=== PATIENT | female | born 1945 | race Caucasian/White ===

== ENCOUNTER 2020-03-23 16:33 | Inpatient (IN) | payer MEDICARE, OTHER, SELFPAY ==
[2020-03-23 17:17] VITALS: BP 145/66; PULSE 104; RESP 16; TEMP 36.8; O2SAT 95; BMI 20.3
[2020-03-23] MEDS: 0.9% Saline Lock 10 ML Syringe IV (21:47)
[2020-03-23] MEDS: Senna/Docusate Sodium 1 Tablet GT (21:56)
--- NOTE | 2020-03-23 22:29 | HP.PCM_ITS ---
Problem List (1) Debility Status: Acute (2) Spontaneous bacterial peritonitis Status: Acute (3) Infectious encephalopathy Status: Acute (4) Stroke Status: Chronic (5) Hypokalemia Status: Acute (6) Hypomagnesemia Status: Acute (7) Aspiration pneumonia Status: Acute (8) Seizure disorder Status: Chronic (9) Diffuse large B cell lymphoma Status: Chronic (10) GERD (gastroesophageal reflux disease) Status: Chronic (11) Hypothyroidism Status: Chronic (12) Depression Status: Chronic (13) Anorexia Status: Chronic (14) Hyperlipidemia Status: Chronic (15) Expressive aphasia Status: Acute History of Present Illness Date of Admission: 03/23/20 Chief Complaint: Here for rehabilitation, strengthening, transition to palliative or hospice care. 02/18/2020 - 03/09/2020 [facility] admission for urinary tract infection, bacteremia, subacute stroke, PEG tube place, potassium 2.2, Magnesium 1.5. 03/14/2020 The patient is a 74 year old Female with below past medical history admitted to [facility] with change in mental status. She is a resident at [facility]. Patient had diffuse abdominal tenderness. CT abdomen/pelvis showed moderate ascites, pneumoperitoneum, fecal impaction, anasarca. 03/16/2020 Paracentesis for spontaneous bacterial peritonitis. Removed 3.7 Liters of fluid growing gram negative bacilli. Zosyn IV started for peritonitis. Ascites fluid grew Pseudomonas, on Zosyn IV. 03/20/2020 PEG tube feeding started. 03/21/2020 Hypoxia, Tachycardia. Gurgling consistent with aspiration. Tube feed stopped. 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 Patient able to eat regular diet. 10 more days of IV Zosyn to finish treatment of bacterial peritonitis. COVID-19 negative x 2. 03/23/2020 Admit to TCU with debility, here for rehabilitation, strengthening, intravenous antibiotics, prior to [facility]. Past Medical History Past Medical History (Chronic Problems): Chronic Problems Stroke (Chronic) Seizure disorder (Chronic) Diffuse large B cell lymphoma (Chronic) GERD (gastroesophageal reflux disease) (Chronic) Hypothyroidism (Chronic) Depression (Chronic) Anorexia (Chronic) Hyperlipidemia (Chronic) Allergies iodine Allergy (Verified 03/23/20 18:54) PT UNSURE OF REACTION NSAIDS (Non-Steroidal Anti-Inflamma Allergy (Verified 03/23/20 18:54) PT UNSURE OF REACTION Home Medications: Ambulatory Orders Medication Instructions Recorded Acyclovir [Zovirax] 400 mg GT BID 03/23/20 Bisacodyl 10 mg WI DAILY PRN 03/23/20 Haloperidol Lactate 0.5 - 1 ml SL Q4H PRN PRN 03/23/20 Hyoscyamine Sulfate 1 - 2 tab SL Q2H PRN PRN 03/23/20 Lorazepam [Ativan] 0.5 - 1 mg SL Q4H PRN PRN 03/23/20 Ondansetron [Ondansetron Odt] 4 mg PO Q6H PRN PRN 03/23/20 Pantoprazole Sodium [Protonix] 40 mg GT DAILY 03/23/20 Piperacillin Sodium/Tazobactam 3.375 gm IV [id number] 03/23/20 [Piperacil-Tazo 3.375 gm Add Vl] Polyethylene Glycol 3350 [Miralax] 17 gm GT DAILY 03/23/20 Prednisone 5 mg PO DAILY 03/23/20 levETIRAcetam oral solution 500 mg PO BID 03/23/20 [Keppra Solution] morphine solution (IR) [Roxanol 5 - 10 mg PO Q1H PRN PRN 03/23/20 (IR oral solution)] Surgical History: - - PEG tube. 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 pertinent FACILITIES MAINTENANCE ASSISTANT history Lives: [facility] Smoking Status: Unknown if ever smoked Alcohol: None Drugs: None - *Family History Maternal History Items: No pertinent history Paternal History Items: No pertinent history Review of Systems Constitutional: Denies: Chills, Fever, Weight Change HEENT: Denies: Head Aches, Sinus Congestion, Sinus Drainage Cardiovascular: Denies: Chest Pain, Palpitations Respiratory: Denies: Cough, Shortness of breath at rest, Sputum production Gastrointestinal: Denies: Abdominal Pain, Nausea, Vomiting Genitourinary: Denies: Dysuria Musculoskeletal: Denies: Joint Pain, Joint Tenderness Skin: Denies: Rash, Wounds Neurological: Denies: Numbness, Tingling, Focal weakness Psychiatric: Denies: Anxiety, Depression, Homicidal Ideations, Suicidal Ideations Hematologic/ Lymphatic: Denies: Easy Bruising, Easy Bleeding VTE Information - Inpt Only VTE Present on Admission: No VTE Mechan Device Prophylaxis: Knee High CURTIS Hose VTE Pharm Prophylaxis ordered?: No Reason prophylaxis not ordered:: Treatment Not Indicated Patient Problems: Active and Suspected Problems Debility (Acute) Spontaneous bacterial peritonitis (Acute) Infectious encephalopathy (Acute) Hypokalemia (Acute) Hypomagnesemia (Acute) Aspiration pneumonia (Acute) Expressive aphasia (Acute) - Physical Exam Vitals/I&O's: Vital Signs Temp Pulse Resp BP Pulse Ox 98.2 F 104 H 16 145/66 H 95 03/23/20 17:17 03/23/20 17:17 03/23/20 17:17 03/23/20 17:17 03/23/20 17:17 Oxygen Delivery Method Room Air Weight: 53.694 kg Body Mass Index (BMI) 20.3 General: Alert, Oriented x3, Cooperative HEENT: Atraumatic, PERRLA, EOMI, Normocephalic Neck: Supple, No JVD, Negative Carotid Bruits Lungs: Clear to auscultation, Normal air movement Cardiovascular: Regular rate, No murmurs, - - Port right upper chest. Abdomen: Bowel Sounds Present, Soft, Non Tender, - - PEG tube present. Extremities: No edema, Capillary Refill Less than 3 Seconds Skin: No rashes, No breakdown Musculoskeletal: No Tenderness to Palpation of Joints or Extremities Neurological: Cranial nerves II-XII grossly intact Psych/Mental Status: Normal Affect, Appropriate Laboratory Results 03/23/20 21:05: COVID-19 (ALEKSANDR) Pending Current Medications Acyclovir (Zovirax) 400 mg GT BID ADELINE Bisacodyl (Dulcolax) 10 mg PO DAILY PRN PRN Reason: Constipation Bisacodyl (Dulcolax) 10 mg RECTAL DAILY PRN PRN Reason: Constipation Haloperidol Lactate (Haloperidol Lactate) 1 - 2 mg SL Q4H PRN PRN PRN Reason: AGITATION Heparin Sodium (Beef Lung) () 50 units IV UD PRN PRN Reason: Port-a-Cath (VAD)Heparin Flush Hyoscyamine Sulfate (Levsin/Sl) 0.125 - 0.25 mg SUBLINGUAL Q2H PRN PRN PRN Reason: secretions Piperacillin Sod/Tazobactam (Sod 3.375 gm/ Sodium Chloride) 50 mls @ 100 mls/hr IV Q6 ADELINE Stop: 04/02/20 12:29 Last Admin: 03/23/20 21:48 Dose: 100 mls/hr Documented by: Sodium Chloride () 250 mls @ 15 mls/hr IV .[id number] PRN PRN Reason: Saline Flush Last Admin: 03/23/20 21:56 Dose: 15 mls/hr Documented by: Sodium Chloride () 250 mls @ 15 mls/hr IV .[id number] PRN PRN Reason: Additional IVPB Infusion Lansoprazole (Lansoprazole) 30 mg GT DAILY ADELINE Levetiracetam (Keppra Oral Solution) 500 mg GT BID ADELINE Lorazepam (Ativan) 0.5 - 1 mg SL/PO Q4H PRN PRN PRN Reason: ANXIETY Morphine Sulfate (Roxanol (Ir Oral Solution)) 5 - 10 mg GT Q1H PRN PRN PRN Reason: Pain Score 1-10/10 Ondansetron HCl (Zofran Odt) 4 mg GT Q6H PRN PRN PRN Reason: NAUSEA Polyethylene Glycol (Miralax) 17 gm GT DAILY ON LICENSE OF [facility] Prednisone () 5 mg GT DAILY ON LICENSE OF [facility] Senna/Docusate Sodium (Senokot-S, Linette-Colace) 1 tablet GT BID ADELINE Last Admin: 03/23/20 21:56 Dose: 1 tablet Documented by: Sodium Chloride () 10 - 40 ml IV UD PRN PRN Reason: Port-a-Cath (VAD) Flush Last Admin: 03/23/20 21:47 Dose: 40 ml Documented by: Sodium Chloride (0.9% Nacl (Sterile) Posiflush) 10 - 40 ml IV UD PRN PRN Reason: Port access or dressing change Tuberculin PPD (Tubersol, Aplisol, Ppd) 5 tu ID X1 ONE Stop: 03/24/20 10:01 Tuberculin PPD (Tubersol, Aplisol, Ppd) 5 tu ID X1 ONE Stop: 03/31/20 10:01 Assessment/Plan All Active Problems Debility (Acute) Spontaneous bacterial peritonitis (Acute) Infectious encephalopathy (Acute) Hypokalemia (Acute) Hypomagnesemia (Acute) Aspiration pneumonia (Acute) Expressive aphasia (Acute) 74 year old female with below past medical history hospitalized for spontaneous bacterial peritonitis, complicated by aspiration pneumonia, admitted to TCU with debility, here for rehabilitation, strengthening, intravenous antibiotics, prior to transition to palliative care/hospice. * Debility - PT/OT. * Pain - Morphine 5-10MG Q1H PRN. * Bowel - Miralax 17GM daily, Senna/colace 1 tablet BID, Dulcolax 10MG daily PRN. * Adult immunization - Administer Prevnar 13, Pneumovax 23, Fluzone as appropriate. * DVT prophylaxis - Hold. * Antiviral prophylaxis - Acyclovir 400MG BID. * Agitation - Haldol 1-2MG SL Q4H PRN, GDR not recommended, resident is end of life. * Oral secretions - Levsin 0.125MG - 0.25MG SL Q2H PRN. * GERD - Lansoprazole 30MG daily. * Seizure disorder - Keppra 500MG BID. * Anxiety - Ativan 0.5MG - 1MG Q4H PRN. * Nausea - Zofran 4MG Q6H PRN. * Bacterial Peritonitis - Zosyn 3.375GM IV Q6H thru 04/02/2020. * Anorexia - Prednisone 5MG daily.
[2020-03-23 22:40] LABS: Probe Check PASS; Specimen Processing Control PASS
--- NOTE | 2020-03-23 23:07 | NURSING ---
Per Marco Antonio in pharm, d/t last dosage being late, hold midnight dose.
[2020-03-23 23:10] VITALS: BMI 20.3
[2020-03-24 04:50] VITALS: BP 145/69; PULSE 98; RESP 18; TEMP 36.8; O2SAT 98
[2020-03-24] MEDS: Lansoprazole 15 MG Capsule.DR 30 MG GT (04:54)
[2020-03-24] MEDS: predniSONE 5 MG Tablet GT (04:54)
[2020-03-24] MEDS: Senna/Docusate Sodium 1 Tablet GT ×2 (04:54→17:20)
[2020-03-24] MEDS: Acyclovir 200 MG Capsule 400 MG GT ×2 (04:54→17:20)
[2020-03-24] MEDS: Menthol/Lanolin/Calamine/Znox 113 GM Tube 1 APPLIC TOPICAL ×2 (04:55→20:18)
[2020-03-24] MEDS: Nystatin Powder 15gm Bottle 1 APPLIC TOPICAL ×2 (04:55→20:18)
[2020-03-24] MEDS: Polyethylene Glycol 3350 17 GM PACKET GT (04:55)
[2020-03-24] MEDS: levETIRAcetam Oral Solution 500 MG/5 ML GT ×2 (04:56→17:20)
[2020-03-24] MEDS: 0.9% Saline Lock 10 ML Syringe IV ×3 (05:04→17:22)
[2020-03-24 08:00] LABS: Absolute Lymphocyte Count 0.48 X10^3/uL (0.83-4.51); Absolute Neutrophil Count 4.7 X10^3/uL (2.0-7.7); Basophil# 0.01 X10^3/uL; Basophil% 0.2 % (0-1); Eosinophil# 0.07 X10^3/uL; Eosinophils% 1.3 % (0-5); Hematocrit 28.5 % (37-47); Hemoglobin 9.5 g/dL (12.0-15.0); Lymphocyte # 0.48 X10^3/ul (4.0); Lymphocyte % 8.8 % (19-41); Mean Corp Hgb Conc 33.3 g/dL (32-36); Mean Corpuscular Hgb 31.3 pg (27.0-32.0); Mean Corpuscular Volume 93.8 fL (81-99); Mean Platelet Vol. 10.7 fl (6.2-12.0); Monocyte# 0.18 X10^3/uL; Monocyte% 3.3 % (0-10); NRBC Flagged by Analyzer 0 % (0-5); Neutrophil # 4.68 X10^3/uL (2.7-7.7); POSITIVE COUNT YES; POSITIVE DIFFERENTIAL YES; POSITIVE MORPHOLOGY YES; RBC Distribution Width CV 20.5 % (11.6-14.6); RBC Distribution Width SD 61.8 fl (35.1-43.9); Red Blood Count 3.04 M/mm3 (4.2-5.4); White Blood Count 5.4 K/mm3 (4.4-11.0)
[2020-03-24 08:06] LABS: Differential Indicated SCAN CRITERIA MET
[2020-03-24 08:08] LABS: Platelet Count 39 K/mm3 (150-450)
[2020-03-24 08:42] LABS: Anion Gap 12 (5-15); BUN 5 mg/dL (7-18); BUN/Creat Ratio 32.5 RATIO (10-20); Calcium,Total 7.9 mg/dL (8.5-10.1); Chloride 104 mmol/L (98-107); Creatinine, Serum 0.15 mg/dL (0.55-1.02); Differential Comment SCANNED; EST Glomerular Filtration Rate 501 mL/min (>60); Est Glom Filt Rate - Afr Amer 606 mL/min (>60); Glucose 81 mg/dL (74-106); Potassium 2.4 mmol/L (3.5-5.1); Sodium Level 140 mmol/L (136-145)
[2020-03-24 08:43] LABS: Anisocytosis 2+; Hypochromasia 1+; Macrocytosis 1+; Microcytosis 1+; Platelet Estimate MKD DEC (ADEQ)
[2020-03-24 10:00] VITALS: PULSE 108; RESP 16; O2SAT 96
[2020-03-24] MEDS: Tuberculin,Purif.prot.deriv. 50 TU/ML Vial 5 ML ID (10:20)
--- NOTE | 2020-03-24 11:00 | NURSING ---
Oral care provided w/mouth swab and lip moisturizer. lips dry/flaking skin. pt incont small amt of stool, incont care provided. schwartz cath care done. pt repositioned to LT side, HOB elevated. Heel boots applied to bilat heels to prevent pressure. pt alert to self only, unable to answer too many questions. difficulty verbalizing to answer questions. denies pain. able to answer yes or no but slow to respond at times. call light in reach.
[2020-03-24] MEDS: morphine (oral solution) 10MG/0.5ML Syringe GT (13:33)
[2020-03-24 14:34] VITALS: BP 141/57; PULSE 76; RESP 14; TEMP 36.1; O2SAT 99
--- NOTE | 2020-03-24 18:08 | NURSING ---
Attempted to call family in chart, no answer, LM
[2020-03-25] MEDS: 0.9% Saline Lock 10 ML Syringe IV ×5 (00:18→23:56)
[2020-03-25] MEDS: Senna/Docusate Sodium 1 Tablet GT ×2 (04:59→17:59)
[2020-03-25] MEDS: Polyethylene Glycol 3350 17 GM PACKET GT (04:59)
[2020-03-25] MEDS: Acyclovir 200 MG Capsule 400 MG GT ×2 (04:59→17:59)
[2020-03-25] MEDS: Lansoprazole 15 MG Capsule.DR 30 MG GT (04:59)
[2020-03-25] MEDS: predniSONE 5 MG Tablet GT (04:59)
[2020-03-25] MEDS: levETIRAcetam Oral Solution 500 MG/5 ML GT ×2 (04:59→17:59)
[2020-03-25] MEDS: Nystatin Powder 15gm Bottle 1 APPLIC TOPICAL ×2 (05:12→20:42)
[2020-03-25 05:13] VITALS: BP 159/78; PULSE 100; RESP 18; TEMP 37.2; O2SAT 93
[2020-03-25] MEDS: Menthol/Lanolin/Calamine/Znox 113 GM Tube 1 APPLIC TOPICAL ×2 (05:13→20:42)
[2020-03-25 06:11] LABS: Anion Gap 9 (5-15); BUN 4 mg/dL (7-18); BUN/Creat Ratio 21.4 RATIO (10-20); Calcium,Total 7.7 mg/dL (8.5-10.1); Chloride 103 mmol/L (98-107); Creatinine, Serum 0.19 mg/dL (0.55-1.02); EST Glomerular Filtration Rate 400 mL/min (>60); Est Glom Filt Rate - Afr Amer 485 mL/min (>60); Glucose 105 mg/dL (74-106); Potassium 3.7 mmol/L (3.5-5.1); Sodium Level 142 mmol/L (136-145)
--- NOTE | 2020-03-25 07:29 | PCA ---
Documented Incont. on wrong pt, this pt has a schwartz
[2020-03-25] MEDS: Hyoscyamine Sulfate 0.125 MG Tablet SUBLINGUAL ×2 (09:12→20:38)
--- NOTE | 2020-03-25 09:17 | NURSING ---
pt positioned on RT side. pt with thick yellow mucus, suctioned oral cavity. pt having diff expectorating, swallows it at times too. levsin SL tab given. pt answering questions approp but pt very weak. oral care provided with mouth swabs & thin water given w/out coughing or choking per FWP, did note pt with many swallows for 2 drinks of water w/straw. had pt slow down swallowing, pt wanted to gulp water fast. pt was resting with eyes closed when this nurse entered room. no distress noted. call light in reach. PEG drsg dry and intact.
[2020-03-25 09:37] VITALS: PULSE 109; RESP 18; O2SAT 95
--- NOTE | 2020-03-25 10:26 | NURSING ---
Dr houser updated on pt NPO status. new order to consult restaurant assistant for recommendation on tube feeding. pt to have swallow eval tomorrow with speech therapy.
[2020-03-25] MEDS: morphine (oral solution) 10MG/0.5ML Syringe GT ×2 (12:52→18:04)
--- NOTE | 2020-03-25 13:56 | NURSING ---
spoke with Rosetta GARCIA for updates and confirm DNRCC status. Rosetta, is pts portfolio accountant, not family. pt has an adopted son that lives in [place] but not a close relationship. Pt speaking with Rosetta on phone, much more verbal with her than she is with staff. Keeps stating to Rosetta that I cant believe where we are, this is amazing Pt smiling. Having some difficulty expressing herself and repeats self.
[2020-03-25 15:05] VITALS: BP 138/37; PULSE 113; RESP 17; TEMP 36.2; O2SAT 95
--- NOTE | 2020-03-25 18:16 | NURSING ---
repositioned to RT side, mouth care provided, lip moisturezed. pt with grimmacing, tears during position change. rates pain high but having difficulty expressing a number, just stated getting high. SL morphine given. fresh water given. Arms elevated on pillows d/t edema in elbows, worse to rt. call light in reach. Vazquez drng straw color urine.
[2020-03-25 20:45] VITALS: O2SAT 93
[2020-03-26] MEDS: morphine (oral solution) 10MG/0.5ML Syringe GT ×2 (00:02→06:31)
[2020-03-26] MEDS: Hyoscyamine Sulfate 0.125 MG Tablet SUBLINGUAL ×2 (00:06→04:40)
[2020-03-26] MEDS: Acyclovir 200 MG Capsule 400 MG GT (04:40)
[2020-03-26] MEDS: Lansoprazole 15 MG Capsule.DR 30 MG GT (04:40)
[2020-03-26] MEDS: Polyethylene Glycol 3350 17 GM PACKET GT (04:40)
[2020-03-26] MEDS: Senna/Docusate Sodium 1 Tablet GT (04:40)
[2020-03-26] MEDS: Menthol/Lanolin/Calamine/Znox 113 GM Tube 1 APPLIC TOPICAL (04:41)
[2020-03-26] MEDS: Nystatin Powder 15gm Bottle 1 APPLIC TOPICAL (04:41)
[2020-03-26] MEDS: predniSONE 5 MG Tablet GT (04:41)
[2020-03-26] MEDS: levETIRAcetam Oral Solution 500 MG/5 ML GT (04:41)
[2020-03-26] MEDS: 0.9% Saline Lock 10 ML Syringe IV ×2 (04:54→11:36)
[2020-03-26 04:59] VITALS: BP 148/70; PULSE 100; RESP 19; TEMP 37.1; O2SAT 93
--- NOTE | 2020-03-26 06:36 | NURSING ---
Pt coughing up thick yellow sputum but unable to follow command to spit it out. Pt keeps trying to re-swallow it. Cough very moist. When trying to suction oral cavity with Yankauer pt bits down and will not allow. When trying to preform mouth care pt bites down on toothete numerous times. Moderate amount of thick yellow sputum removed. When asking pt if she could say her name. Pt starred at staff. When asking pt if she was in pain pt shock her head yes. When asking pt where pain was pt did not respond. PRN pain medication given. Bilateral feet +2 pitting edema. URI wraps applied. Pt resting in bed with call light in reach.
[2020-03-26 10:00] VITALS: PULSE 136; RESP 28; O2SAT 96
--- NOTE | 2020-03-26 10:04 | CASEMGMT ---
Addendum entered by Christina Sierra 03/26/20 11:28: [facility]. Scheduled cot transport with Physician's at 1 pm. Notified POA and [facility]. Pt is unable to converse with SW to complete initial assessment. Plan: DC [facility] 03/26 Original Note: Social Work Physician spoke with pt's POA, Rosetta whom is the pt's mineralogy teacher, and pt is appropriate for [facility]. Contacted POA and answered questions. Referral made to [facility]. Will await outcome. Pt is a DNR-CC. NICK HebertW
--- NOTE | 2020-03-26 12:12 | DCINST_ITS ---
- Discharge Diagnoses Current Active Problems: Current Active and Chronic Problems Debility (Acute) Spontaneous bacterial peritonitis (Acute) Infectious encephalopathy (Acute) Stroke (Chronic) Hypokalemia (Acute) Hypomagnesemia (Acute) Aspiration pneumonia (Acute) Seizure disorder (Chronic) Diffuse large B cell lymphoma (Chronic) GERD (gastroesophageal reflux disease) (Chronic) Hypothyroidism (Chronic) Depression (Chronic) Anorexia (Chronic) Hyperlipidemia (Chronic) Expressive aphasia (Acute) You will use the following diet at home:: Other - NPO. Weight Bearing Status: Weight bearing as tolerated Call your doctor if you observe: Fever of 101 or Higher, Inability to urinate, Inability to have a bowel movement, Shortness of breath, Chest pain, Uncontrolled pain Allergies/Adverse Reactions: Allergies iodine Allergy (Verified 03/23/20 18:54) PT UNSURE OF REACTION NSAIDS (Non-Steroidal Anti-Inflamma Allergy (Verified 03/23/20 18:54) PT UNSURE OF REACTION Medications to take at Discharge Acyclovir [Zovirax] 400 mg GT BID 03/23/20 Bisacodyl 10 mg FL DAILY PRN 03/23/20 Haloperidol Lactate 0.5 - 1 ml SL Q4H PRN PRN 03/23/20 Hyoscyamine Sulfate 1 - 2 tab SL Q2H PRN PRN 03/23/20 Lorazepam [Ativan] 0.5 - 1 mg SL Q4H PRN PRN 03/23/20 Ondansetron [Ondansetron Odt] 4 mg PO Q6H PRN PRN 03/23/20 Pantoprazole Sodium [Protonix] 40 mg GT DAILY 03/23/20 Piperacillin Sodium/Tazobactam [Piperacil-Tazo 3.375 gm Add Vl] 3.375 gm IV [id number] 03/23/20 Polyethylene Glycol 3350 [Miralax] 17 gm GT DAILY 03/23/20 Prednisone 5 mg PO DAILY 03/23/20 levETIRAcetam oral solution [Keppra Solution] 500 mg PO BID 03/23/20 morphine solution (IR) [Roxanol (IR oral solution)] 5 - 10 mg PO Q1H PRN PRN 03/23/20 Primary Care Physician: Jose Francisco Mi MD [Primary Care Provider] - Please follow up with your Primary Care Physician in: As needed. Test Results: Test results from this visit will be discussed in further detail at your follow- up appointment, if applicable. Proposed Discharge Date: 03/26/20
[2020-03-26 12:13] VITALS: BP 128/82; PULSE 136; RESP 20; TEMP 36.6; O2SAT 94
--- NOTE | 2020-03-26 12:14 | DS.PCM_ITS ---
Discharge Date and Diagnosis - Problem List Patient Problems: Active and Suspected Problems Debility (Acute) Spontaneous bacterial peritonitis (Acute) Infectious encephalopathy (Acute) Hypokalemia (Acute) Hypomagnesemia (Acute) Aspiration pneumonia (Acute) Expressive aphasia (Acute) Date of Admission: 03/23/20 Date of Discharge: 03/26/20 - Primary Discharge Diagnosis Acute Problems: Active Problems Debility (Acute) Spontaneous bacterial peritonitis (Acute) Infectious encephalopathy (Acute) Hypokalemia (Acute) Hypomagnesemia (Acute) Aspiration pneumonia (Acute) Expressive aphasia (Acute) - Secondary Discharge Diagnosis Chronic Problems: Chronic Problems Stroke (Chronic) Seizure disorder (Chronic) Diffuse large B cell lymphoma (Chronic) GERD (gastroesophageal reflux disease) (Chronic) Hypothyroidism (Chronic) Depression (Chronic) Anorexia (Chronic) Hyperlipidemia (Chronic) Hospital Course and Treatment Imaging Results: 03/24/20 13:43 Diet: Nothing Per Oral Is pt able to select menu?: No Diet Comments: diet for pleasure eating Labs (Last 48 Hours) 03/25/20 05:50 Sodium 142 Potassium 3.7 Chloride 103 Carbon Dioxide 30.0 Anion Gap 9 BUN 4 L Creatinine 0.19 L Estim Creat Clear Calc 43.10 Est GFR (MDRD) Af Amer 485 Est GFR (MDRD) Non-Af 400 BUN/Creatinine Ratio 21.4 H Glucose 105 Calcium 7.7 L Operations: None Procedures: None Summary of Care Provided: The patient is a 74 year old Female with below past medical history hospitalized for spontaneous bacterial peritonitis, complicated by aspiration pneumonia, admitted to TCU with debility, here for rehabilitation, strengthening, intravenous antibiotics, prior to transition to palliative care/hospice. Spoke with ABRAHAN Sargent, let her know Rebecca is dying. Discharge to Inpatient Hospice Facility for end of life care. Patient Problems: Active and Suspected Problems Debility (Acute) Spontaneous bacterial peritonitis (Acute) Infectious encephalopathy (Acute) Hypokalemia (Acute) Hypomagnesemia (Acute) Aspiration pneumonia (Acute) Expressive aphasia (Acute) - Physical Exam Vitals/I&O's: Vital Signs Temp Pulse Resp BP Pulse Ox 98.8 F 136 H 28 H 148/70 H 96 03/26/20 04:59 03/26/20 10:00 03/26/20 10:00 03/26/20 04:59 03/26/20 10:00 Oxygen Flow Rate (L/min) 2 Oxygen Delivery Method Nasal Cannula Weight: 53.615 kg Body Mass Index (BMI) 20.3 Intake and Output for Last 24 Hours 03/24/20 03/25/20 03/26/20 23:59 23:59 23:59 Intake Total 840 / 840 530 / 530 160 / 160 Output Total 825 / 825 1200 / 1200 625 / 625 Balance - / -670 -465 / -465 Current Medications Acyclovir (Zovirax) 400 mg GT BID [facility] Last Admin: 03/26/20 04:40 Dose: 400 mg Documented by: Atropine Sulfate (Atropisol) 4 drop PO Q3H PRN PRN PRN Reason: CONGESTION Bisacodyl (Dulcolax) 10 mg PO DAILY PRN PRN Reason: Constipation Bisacodyl (Dulcolax) 10 mg RECTAL DAILY PRN PRN Reason: Constipation Calamine/Phenol (Calmoseptine Ointment) 1 applic TOPICAL 0600,2200 [facility]; Protocol Last Admin: 03/26/20 04:41 Dose: 1 applicatio Documented by: Heparin Sodium (Beef Lung) () 50 units IV UD PRN PRN Reason: Port-a-Cath (VAD)Heparin Flush Piperacillin Sod/Tazobactam (Sod 3.375 gm/ Sodium Chloride) 50 mls @ 100 mls/hr IV Q6 [facility] Stop: 04/02/20 12:29 Last Admin: 03/26/20 11:32 Dose: 100 mls/hr Documented by: Sodium Chloride () 250 mls @ 15 mls/hr IV .[id number] PRN PRN Reason: Saline Flush Last Infusion: 03/26/20 05:41 Dose: 0 mls/hr Documented by: Sodium Chloride () 250 mls @ 15 mls/hr IV .[id number] PRN PRN Reason: Additional IVPB Infusion Lansoprazole (Lansoprazole) 30 mg GT DAILY [facility] Last Admin: 03/26/20 04:40 Dose: 30 mg Documented by: Levetiracetam (Keppra Oral Solution) 500 mg GT BID [facility] Last Admin: 03/26/20 04:41 Dose: 500 mg Documented by: Lorazepam (Ativan) 0.5 - 1 mg SL/PO Q4H PRN PRN PRN Reason: ANXIETY Morphine Sulfate (Roxanol (Ir Oral Solution)) 5 - 10 mg GT Q1H PRN PRN PRN Reason: Pain Score 1-10/10 Last Admin: 03/26/20 06:31 Dose: 10 mg Documented by: Nystatin (Mycostatin Powder) 1 applic TOPICAL 0600,2200 [facility]; Protocol Last Admin: 03/26/20 04:41 Dose: 1 applicatio Documented by: Ondansetron HCl (Zofran Odt) 4 mg GT Q6H PRN PRN PRN Reason: NAUSEA Polyethylene Glycol (Miralax) 17 gm GT DAILY [facility] Last Admin: 03/26/20 04:40 Dose: 17 gm Documented by: Potassium Chloride (Potassium Chl Soln) 20 meq GT TID [facility] Last Admin: 03/26/20 04:40 Dose: 20 meq Documented by: Prednisone () 5 mg GT DAILY [facility] Last Admin: 03/26/20 04:41 Dose: 5 mg Documented by: Senna/Docusate Sodium (Senokot-S, Linette-Colace) 1 tablet GT BID [facility] Last Admin: 03/26/20 04:40 Dose: 1 tablet Documented by: Sodium Chloride () 10 - 40 ml IV UD PRN PRN Reason: Port-a-Cath (VAD) Flush Last Admin: 03/26/20 11:36 Dose: 20 ml Documented by: Sodium Chloride (0.9% Nacl (Sterile) Posiflush) 10 - 40 ml IV UD PRN PRN Reason: Port access or dressing change Tuberculin PPD (Tubersol, Aplisol, Ppd) 5 tu ID X1 ONE Stop: 03/31/20 10:01 Discharge Diet: - - NPO. Weight Bearing Status: Weight bearing as tolerated Call your doctor if you observe: Fever of 101 or Higher, Inability to urinate, Inability to have a bowel movement, Shortness of breath, Chest pain, Uncontrolled pain Home Medications: Medications to take at Discharge Acyclovir [Zovirax] 400 mg GT BID 03/23/20 Bisacodyl 10 mg [place] DAILY PRN 03/23/20 Haloperidol Lactate 0.5 - 1 ml SL Q4H PRN PRN 03/23/20 Hyoscyamine Sulfate 1 - 2 tab SL Q2H PRN PRN 03/23/20 Lorazepam [Ativan] 0.5 - 1 mg SL Q4H PRN PRN 03/23/20 Ondansetron [Ondansetron Odt] 4 mg PO Q6H PRN PRN 03/23/20 Pantoprazole Sodium [Protonix] 40 mg GT DAILY 03/23/20 Piperacillin Sodium/Tazobactam [Piperacil-Tazo 3.375 gm Add Vl] 3.375 gm IV [id number] 03/23/20 Polyethylene Glycol 3350 [Miralax] 17 gm GT DAILY 03/23/20 Prednisone 5 mg PO DAILY 03/23/20 levETIRAcetam oral solution [Keppra Solution] 500 mg PO BID 03/23/20 morphine solution (IR) [Roxanol (IR oral solution)] 5 - 10 mg PO Q1H PRN PRN 03/23/20 Primary Care Physician: Jose Francisco Mi MD [Primary Care Provider] - Please follow up with your Primary Care Physician in: As needed. Disposition: Hospice Medical Facility Minutes spent on discharge:: 30 Patient Condition:: Poor Medical Necessity - Tobacco Use Smoking Status: Unknown if ever smoked Meaningful Use Info Meaningful Use Diagnoses (Choose all that apply): None applicable
[2020-03-26 12:23] LABS: Pathologist Review Reviewed
--- NOTE | 2020-03-26 12:50 | NURSING ---
Report called to [facility]
[2020-03-26 13:49] VITALS: BP 128/82; PULSE 136; RESP 20; TEMP 36.7; O2SAT 94
--- NOTE | 2020-04-04 13:55 | MDS.RN ---
Information for the mds was obtained from review of the clinical record, interview of resident, staff, and direct observation of resident's care.
== END 2020-03-26 13:54 | disposition hospice, inpatient (51) | DRG 371 ==
PROVIDERS: Admitting Provider Family Medicine Geriatric Medicine; PCP Internal Medicine; Visit Provider Family Medicine Geriatric Medicine
DX: K65.2 Spontaneous bacterial peritonitis (principal); J69.0 Pneumonitis due to inhalation of food and vomit; C83.30 Diffuse large B-cell lymphoma, unspecified site; G93.49 Other encephalopathy; R47.01 Aphasia; F41.9 Anxiety disorder, unspecified; G40.909 Epilepsy, unspecified, not intractable, without status epilepticus; K21.9 Gastro-esophageal reflux disease without esophagitis; E78.5 Hyperlipidemia, unspecified; E03.9 Hypothyroidism, unspecified; F32.9 Major depressive disorder, single episode, unspecified; Z86.73 Personal history of transient ischemic attack (TIA), and cerebral infarction without residual deficits
CPT/HCPCS: 36415; 80048; 85025; 87635; 92523; 92526; 92610; 97110; 97162; 97166; 97530; 97802; G2023; J7050; A4216; U0003